=== PATIENT | male | born 1985 | race Caucasian/White ===

== ENCOUNTER 2017-12-09 18:00 | Emergency (ER) | payer BC ==
[2017-12-09 18:31] VITALS: BP 135/87; TEMP 98.5; BMI 30.1
--- NOTE | 2017-12-09 18:32 | PDOC ---
Rapid Medical Evaluation Chief Complaint: Chest Pain Time Seen by Provider: 12/09/17 18:29 Medical Evaluation: Allergies Allergy/AdvReac Type Severity Reaction Status Date / Time prednisone Allergy Hives Verified 12/09/17 18:28 12/09/17 18:29 Pt states he had chest pain starting this afternoon starting around 1pm. Pt has pmh of asthma. Pt also admits to a headache. States his chest feels tight Exam: RRR, lungs CTAB Orders: Labs ,Iv, EKG, CXR Pt to proceed to the ED for further evaluation Discharge Disposition - Diagnosis Chest pain - Referrals - Patient Instructions - Post Discharge Activity
--- NOTE | 2017-12-09 19:11 | PDOC ---
History of Present Illness - General Chief Complaint: Chest Pain Stated Complaint: CHEST PAIN Time Seen by Provider: 12/09/17 18:29 - History of Present Illness Initial Comments: 12/09/17 19:11 Mr. Engel is a 32 yo male w/ pmh of asthma and anxiety who presents for evaluation of midline chest pain since 1pm tonight. Patient reports he was walking around at work without strenuous activity when his pain started. He took some motrin as well for a headache that developed following this and reports the headache has mostly resolved. Patient denies pain being sharp or constant but describes it as a "funny feeling." The patient denies shortness of breath, and dizziness. Denies fever, chills, nausea, vomit, diarrhea and constipation. Denies dysuria, frequency, urgency and hematuria. Past History - Past Medical History Allergies/Adverse Reactions: Allergies Allergy/AdvReac Type Severity Reaction Status Date / Time prednisone Allergy Hives Verified 12/09/17 18:28 Home Medications: Ambulatory Orders Albuterol 2.5/Ipratropium 0.5 [Duoneb -] 1 neb NEB Q4H #20 vial 11/09/16 Fluticasone Prop 0.05% Nasal [Flonase -] 1 - 2 spray NS DAILY #1 spray.pump Prednisone [Deltasone] 20 mg PO BID #10 tablet 11/09/16 clonazePAM [KlonoPIN] 0.5 mg PO ASDIR PRN 11/09/16 Albuterol Sulfate Inhaler - [Ventolin HFA Inhaler -] 1 - 2 inh PO Q4H PRN #1 inhaler 12/09/17 Asthma: Yes Kidney Stones: Yes (DEC 2010) Seizures: (ANXIETY) - Surgical History Appendectomy: Yes - Immunization History Immunization Up to Date: Yes - Suicide/Smoking/Psychosocial Hx Smoking Status: No Smoking History: Never smoked Have you smoked in the past 12 months: No Number of Cigarettes Smoked Daily: 0 Hx Alcohol Use: No Drug/Substance Use Hx: No Substance Use Type: None Review of Systems - Review of Systems Comments:: 12/09/17 19:25 GENERAL/CONSTITUTIONAL: No fever or chills. No weakness. HEAD, EYES, EARS, NOSE AND THROAT: No change in vision. No ear pain or discharge. No sore throat. CARDIOVASCULAR: +Chest pain as described. No shortness of breath RESPIRATORY: No cough, wheezing, or hemoptysis. GASTROINTESTINAL: No nausea, vomiting, diarrhea or constipation. GENITOURINARY: No dysuria, frequency, or change in urination. MUSCULOSKELETAL: No joint or muscle swelling or pain. No neck or back pain. SKIN: No rash NEUROLOGIC: +Headache as described, no vertigo, loss of consciousness, or change in strength/sensation. ENDOCRINE: No increased thirst. No abnormal weight change HEMATOLOGIC/LYMPHATIC: No anemia, easy bleeding, or history of blood clots. ALLERGIC/IMMUNOLOGIC: No hives or skin allergy. *Physical Exam - Vital Signs Last Vital Signs Temp Pulse Resp BP Pulse Ox 98.5 F 102 H 18 135/87 96 12/09/17 18:28 12/09/17 18:28 12/09/17 18:28 12/09/17 18:28 12/09/17 18:28 - Physical Exam Comments: 12/09/17 19:25 GENERAL: Awake, alert, and fully oriented, in no acute distress HEAD: No signs of trauma, normocephalic, atraumatic EYES: PERRLA, EOMI, sclera anicteric, conjunctiva clear ENT: Auricles normal inspection, hearing grossly normal, nares patent, oropharynx clear without exudates. Moist mucosa NECK: Normal ROM, supple, no lymphadenopathy, JVD, or masses LUNGS: +Diffuse wheezes appreciated throughout lung reed. No distress, speaks full sentences, clear to auscultation bilaterally HEART: +Some chest wall TTP. Regular rate and rhythm, normal S1 and S2, no murmurs, rubs or gallops, peripheral pulses normal and equal bilaterally. ABDOMEN: Soft, nontender, normoactive bowel sounds. No guarding, no rebound. No masses EXTREMITIES: Normal inspection, Normal range of motion, no edema. No clubbing or cyanosis. NEUROLOGICAL: Cranial nerves II through XII grossly intact. Normal speech, normal gait, no focal sensorimotor deficits SKIN: Warm, Dry, normal turgor, no rashes or lesions noted. ED Treatment Course - LABORATORY CBC & Chemistry Diagram: 12/09/17 18:54 12/09/17 18:54 Medical Decision Making - Medical Decision Making 12/09/17 20:25 Mr. Engel is a 32 yo male w/ pmh as described who presents for evaluation of chest pain c/w asthma exacerbation. Patient given duonebs and Mg w/ reduction in chest pain symptoms and repeat exam vastly improved. Labs as below grossly unconcerning. EKG negative. Patient midway through duonebs at this time. 12/09/17 21:24 Patient improved after duoneb treatment. CXR also negative. Discharging for further outpatient follow-up as needed. Laboratory Results - last 24 hr 12/09/17 12/09/17 12/09/17 18:54 18:54 18:54 WBC 9.7 RBC 5.24 Hgb 16.3 Hct 48.7 MCV 93.0 MCH 31.1 MCHC 33.5 RDW 12.9 Plt Count 179 MPV 9.9 Absolute Neuts (auto) 6.7 Neutrophils % 69.4 Lymphocytes % 20.6 Monocytes % 8.2 Eosinophils % 1.0 Basophils % 0.8 Nucleated RBC % 0 PT with INR 11.60 INR 0.98 Sodium 141 Potassium 4.4 Chloride 107 Carbon Dioxide 26 Anion Gap 8 BUN 15 Creatinine 1.1 Creat Clearance w eGFR > 60 Random Glucose 91 Calcium 8.8 Total Bilirubin 0.4 AST 27 ALT 64 H Alkaline Phosphatase 67 Creatine Kinase Troponin I Total Protein 7.2 Albumin 4.2 12/09/17 18:54 WBC RBC Hgb Hct MCV MCH MCHC RDW Plt Count MPV Absolute Neuts (auto) Neutrophils % Lymphocytes % Monocytes % Eosinophils % Basophils % Nucleated RBC % PT with INR INR Sodium Potassium Chloride Carbon Dioxide Anion Gap BUN Creatinine Creat Clearance w eGFR Random Glucose Calcium Total Bilirubin AST ALT Alkaline Phosphatase Creatine Kinase 128 Troponin I < 0.02 Total Protein Albumin *DC/Admit/Observation/Transfer Diagnosis at time of Disposition: Chest pain Qualifiers: Chest pain type: unspecified Qualified Code(s): R07.9 - Chest pain, unspecified Asthma Qualifiers: Asthma severity: unspecified severity Asthma persistence: unspecified Asthma complication type: unspecified Qualified Code(s): J45.909 - Unspecified asthma, uncomplicated - Discharge Dispostion Disposition: HOME Condition at time of disposition: Improved - Prescriptions Prescriptions: Albuterol Sulfate Inhaler - [Ventolin HFA Inhaler -] 1 - 2 inh PO Q4H PRN #1 inhaler PRN Reason: Short Of Breath/Wheezing - Referrals Referrals: Donavon Cunningham [Primary Care Provider] - - Patient Instructions Printed Discharge Instructions: DI for Asthma -- Adult, DI for Atypical Chest Pain, DI for Anxiety -- Adult Additional Instructions: You were evaluated today in the ER for your chest pain. No concerning findings were found on EKG or labs, and your symptoms improved after breathing treatments. We do not believe anything emergent is going on at this time. Please follow-up with primary care provider later this week for further evaluation. Return to ER if any return of chest pain, fever, chills, or other concerning symptoms. Please follow with her primary doctor for your symptoms, he may need titration of your anxiety medications as you have been undergoing some recent stress. May take your albuterol inhaler 1-2 puffs every 4-6 hours as needed for chest discomfort, shortness breath or wheezing. Minimize potential triggers including the environment and infections. Your enzymes here are negative and her EKG was unchanged and normal so this was not a heart attack. - Post Discharge Activity
[2017-12-09 19:15] LABS: BASO % 0.8 % (0-2.0); HEMATOCRIT 48.7 % (35.4-49); HEMOGLOBIN 16.3 GM/dL (11.7-16.9); LYMPH % 20.6 % (8-40); MCH 31.1 pg (25.7-33.7); MCHC 33.5 g/dl (32.0-35.9); MEAN PLT VOLUME 9.9 fl (7.5-11.1); MONO % 8.2 % (3.8-10.2); NEUT % 69.4 % (42.8-82.8); PLATELET COUNT 179 K/MM3 (134-434); RBC 5.24 M/mm3 (4.00-5.60); RDW 12.9 % (11.9-15.9); WHITE BLOOD COUNT 9.7 K/mm3 (4.0-10.0)
[2017-12-09] MEDS ORDERED: MAGNESIUM SULF 50% (8.12 MEQ/2 ML-1 GM VIAL) IVPB ONE (19:17)
[2017-12-09] MEDS ORDERED: ALBUTEROL SO4 2.5/IPRATROPIUM 0.5 INH SOL 3 ML VIAL.NEB. NEB ONE (19:19)
[2017-12-09] MEDS: ALBUTEROL SO4 2.5/IPRATROPIUM 0.5 INH SOL 3 ML VIAL.NEB. NEB SCH ×3 (19:27→20:14)
[2017-12-09 19:29] LABS: INR 0.98 (0.83-1.09); PROTHROMBIN TIME (PATIENT) 11.6 SEC (9.7-13.0)
[2017-12-09 19:31] VITALS: PULSE 82
[2017-12-09] MEDS ORDERED: MAGNESIUM 1GM/D5W - 2 GM/200 ML IVPB IVPB ONE (19:45)
[2017-12-09 19:50] LABS: ALBUMIN 4.2 g/dl (3.4-5.0); ALK PHOS 67 U/L (45-117); ANION GAP 8 MMOL/L (8-16); BILIRUBIN,TOTAL 0.4 mg/dL (0.2-1); BLOOD UREA NITROGEN 15 mg/dL (7-18); CALCIUM 8.8 mg/dL (8.5-10.1); CHLORIDE 107 mmol/L (98-107); CO2 26 mmol/L (21-32); CREATININE 1.1 mg/dL (0.55-1.3); GLUCOSE,RANDOM 91 mg/dL (74-106); POTASSIUM 4.4 mmol/L (3.5-5.1); SGOT/AST 27 U/L (15-37); SGPT/ALT 64 U/L (13-61); SODIUM 141 mmol/L (136-145); TOT PROT 7.2 g/dl (6.4-8.2)
--- NOTE | 2017-12-09 21:17 | PDOC ---
Attending Attestation - Resident Resident Name: Rafa Davis - ED Attending Attestation I have performed the following: I have examined & evaluated the patient, The case was reviewed & discussed with the resident, I agree w/resident's findings & plan - HPI HPI: 12/09/17 21:14 The patient is a 32 year old male with a significant past medical history of asthma and anxiety who presents for evaluation of midline chest pain since 1pm today. He states he was walking leisurely at work when he developed the nonradiating midline chest pain which he describes as a funny feeling. admits to recent stressors, going through divorce. no tobacco or etoh use. denies precipitants or allergens or sick contacts The patient denies shortness of breath, headache and dizziness. The patient denies fever, chills, nausea, vomit, diarrhea and constipation. The patient denies dysuria, frequency, urgency and hematuria. Allergies: NKDA - Physicial Exam PE: 12/09/17 21:17 NAD, well appearing, eomi, perrl, MMM, nl conjunctiva, anicteric; neck supple. lungs clear, no respiratory distress. RRR, abdomen soft nontender. MOODY x4, no focal neuro deficits. No peripheral edema. normal color for ethnicity, WWP. no calf tenderess 12/09/17 21:17 - Medical Decision Making 12/09/17 21:17 32-year-old male with history of anxiety and asthma presenting with chest pain today, since resolved. +stressors. no infection prodrome or sick contacts or allergens. Diff diagnosis includes asthma exacerbation, viral syndrome, bronchitis, pneumonia, anxiety reaction, costochondritis, clinically consider but doubt ACS or cardiovascular etiology, PE or dissection. Vital signs reviewed, initial tachy, otherwise wnl. Prior notes reviewed, including admissions, discharges and consultations. laboratory results and imaging reviewed, basic labs and lytes wnl CXR_neg for pna or edema/infiltrate, clear no acute pathology Cardiac panel_negative, so doubt ACS. EKG normal sinus rhythm, no interval abnormalities, narrow QRS, ST and T wave segments and morphology normal. Nonspecific T wave abnormalities similar to prior. ED course: no acute events, remained stable and well appearing. Clinically improved after interventions, including duonebs and Mg, steroid allergy so will not give chest pain free, no respiratory distress. VS improved, tachy down. normal sats and respiratory status, no fevers, nontoxic Dispo: Pt to be discharged in stable condition. Patient made aware of impression and plan, return precautions discussed (including but not limited to worsening pain or symptoms), fevers, or signs of infection, chest pain, respiratory distress, inability to tolerate oral intake, dehydration, syncope, or neurologic changes). Follow up with PMD and/or specialist as recommended, follow up information provided, take medications as instructed for duration of time. continue with supportive care, avoid triggers and precipitants. stress reduction as well due to recent stressors, f/u pcp for change and adjustments with anxiolytic meds. All questions answered to patient's satisfaction and expressed understanding and comfort with this. 12/09/17 21:22 12/09/17 21:23 *DC/Admit/Observation/Transfer Diagnosis at time of Disposition: Asthma Chest pain Qualifiers: Chest pain type: unspecified Qualified Code(s): R07.9 - Chest pain, unspecified - Discharge Dispostion Disposition: HOME Condition at time of disposition: Improved Decision to Admit order: No - Prescriptions Prescriptions: Albuterol Sulfate Inhaler - [Ventolin HFA Inhaler -] 1 - 2 inh PO Q4H PRN #1 inhaler PRN Reason: Short Of Breath/Wheezing - Referrals Referrals: Donavon Cunningham [Primary Care Provider] - - Patient Instructions Printed Discharge Instructions: DI for Asthma -- Adult, DI for Atypical Chest Pain, DI for Anxiety -- Adult Additional Instructions: You were evaluated today in the ER for your chest pain. No concerning findings were found on EKG or labs, and your symptoms improved after breathing treatments. We do not believe anything emergent is going on at this time. Please follow-up with primary care provider later this week for further evaluation. Return to ER if any return of chest pain, fever, chills, or other concerning symptoms. Please follow with her primary doctor for your symptoms, he may need titration of your anxiety medications as you have been undergoing some recent stress. May take your albuterol inhaler 1-2 puffs every 4-6 hours as needed for chest discomfort, shortness breath or wheezing. Minimize potential triggers including the environment and infections. Your enzymes here are negative and her EKG was unchanged and normal so this was not a heart attack. - Post Discharge Activity
--- NOTE | 2017-12-11 15:08 | EKG ---
Test Reason : Blood Pressure : / mmHG Vent. Rate : 094 BPM Atrial Rate : 094 BPM P-R Int : 148 ms QRS Dur : 090 ms QT Int : 352 ms P-R-T Axes : 068 054 051 degrees QTc Int : 440 ms NORMAL SINUS RHYTHM NONSPECIFIC T WAVE ABNORMALITY ABNORMAL ECG WHEN COMPARED WITH ECG OF 25-SEP-2011 02:45, NONSPECIFIC T WAVE ABNORMALITY NOW EVIDENT IN LATERAL LEADS Confirmed by ROB DIMAS, PRESLEY ([id number]) on 12/11/2017 3:08:29 PM Referred By: Confirmed By:PRESLEY RIVAS MD
== END 2017-12-09 21:27 | disposition home or self-care (01) ==
LOC: JER 18:00
PROC: 3E033GC Introduction of Other Therapeutic Substance into Peripheral Vein, Percutaneous Approach (ICD-10-PCS; principal; 2017-12-09)
PROC: 3E0F7GC Introduction of Other Therapeutic Substance into Respiratory Tract, Via Natural or Artificial Opening (ICD-10-PCS; 2017-12-09)
DX: J45.909 Unspecified asthma, uncomplicated (principal); F41.9 Anxiety disorder, unspecified
CPT/HCPCS: 36415; 71046-TC-FY; 80053; 82550; 84484; 85025; 85610; 93005; 93010; 99283-25

== ENCOUNTER 2018-10-31 10:04 | Emergency (ER) | payer BC ==
[2018-10-31 10:09] VITALS: BP 135/84; PULSE 99; TEMP 98.3; BMI 29.5
[2018-10-31] MEDS ORDERED: IBUPROFEN 400 MG TABLET (FP) PO ONE ×2 (10:51→10:53)
--- NOTE | 2018-10-31 10:51 | PDOC ---
History of Present Illness - General Chief Complaint: Injury Stated Complaint: LACERATION Time Seen by Provider: 10/31/18 10:27 History Source: Patient Exam Limitations: No Limitations Past History - Travel Traveled outside of the country in the last 30 days: No Close contact w/someone who was outside of country & ill: No - Past Medical History Allergies/Adverse Reactions: Allergies Allergy/AdvReac Type Severity Reaction Status Date / Time prednisone Allergy Hives Verified 10/31/18 10:10 Home Medications: Ambulatory Orders Albuterol 2.5/Ipratropium 0.5 [Duoneb -] 1 neb NEB Q4H #20 vial 11/09/16 Fluticasone Prop 0.05% Nasal [Flonase -] 1 - 2 spray NS DAILY #1 spray.pump Prednisone [Deltasone] 20 mg PO BID #10 tablet 11/09/16 clonazePAM [KlonoPIN] 0.5 mg PO ASDIR PRN 11/09/16 Albuterol Sulfate Inhaler - [Ventolin HFA Inhaler -] 1 - 2 inh PO Q4H PRN #1 inhaler 12/09/17 Amoxicillin/Potassium Clav [Augmentin 875-125 Tablet] 1 each PO BID #13 tablet 10/31/18 Ibuprofen 600 mg PO Q6H #30 tablet 10/31/18 Asthma: Yes COPD: No Kidney Stones: Yes (DEC 2010) Seizures: (ANXIETY) - Surgical History Appendectomy: Yes - Immunization History Immunization Up to Date: Yes - Suicide/Smoking/Psychosocial Hx Smoking Status: No Smoking History: Never smoked Have you smoked in the past 12 months: No Number of Cigarettes Smoked Daily: 0 Hx Alcohol Use: Yes Drug/Substance Use Hx: No Substance Use Type: None Review of Systems - Review of Systems Able to Perform ROS?: Yes Comments:: 10/31/18 10:42 CONSTITUTIONAL: Absent: fever, chills, diaphoresis, generalized weakness, malaise, loss of appetite HEENT: Absent: rhinorrhea, nasal congestion, throat pain, throat swelling, difficulty swallowing, mouth swelling, ear pain, eye pain, visual Changes SKIN: Present: laceration Absent: rash, itching, pallor NEUROLOGIC: Absent: headache, focal weakness or paresthesias, dizziness, unsteady gait, seizure, mental status changes, bladder or bowel incontinence PSYCHIATRIC: Absent: anxiety, depression, suicidal or homicidal ideation, hallucinations. Is the patient limited Thai proficient: No *Physical Exam - Vital Signs Last Vital Signs Temp Pulse Resp BP Pulse Ox 98.3 F 99 H 16 135/84 97 10/31/18 10:07 10/31/18 10:07 10/31/18 10:07 10/31/18 10:07 10/31/18 10:07 - Physical Exam Comments: 10/31/18 10:43 GENERAL: The patient is awake, alert, and fully oriented, in no acute distress. HEAD: Normal with no signs of trauma. EYES: Pupils equal, round and reactive to light, extraocular movements intact, sclera anicteric, conjunctiva clear. MOUTH: Teeth intact, no dental damage EXTREMITIES: Normal range of motion, no edema. NEUROLOGICAL: Normal speech, normal gait. PSYCH: Normal mood, normal affect. SKIN: 1 cm deep laceration to the R upper lip, through and through. Warm, Dry, normal turgor, no rashes or lesions noted Procedures - Laceration/Wound Repair Right Upper Lip Wound Length: to 2.5 cm Wound Explored: clean, no foreign body present Wound's Depth, Shape: into muscle, linear Irrigated w/ Saline: Yes Betadine Prep: Yes Anesthesia: 1% Lidocaine Amount of Anesthetic (ccs): 3 Wound Repaired With: Sutures Suture Size/Type: 6:0 (nylon) Number of Sutures: 3 (simple interrupted) Layer Closure: Yes Deep Layer Suture Size/Type: 5:0 (gut) Number of Deep Layer Sutures: 1 Medical Decision Making - Medical Decision Making 10/31/18 11:54 The patient is a 33 y/o M with PMH of anxiety presents to the ER with a laceration to his R upper lip. He states he was playing softball in left field when he got hit in the face with a ball that took a bad hop approximately one hour ago. His friends told him the wound was deep so he came to the ER to have the wound sutured. Denies headache, LOC, dental damage. A/P: lip laceration On exam 1cm deep laceration to the R upper lip No vermilion boarder involvement Wound cleaned under high pressure normal saline Wound closed; see procedure note Tetanus updated Given deep wound to lip; placed pt on Augmentin. First dose given in ED Pt to return in two days for a wound check DC home I discussed the physical exam findings, ancillary test results and final diagnoses with the patient. I answered all of the patient's questions. The patient was satisfied with the care received and felt comfortable with the discharge plan and treatment plan. The Patient agrees to follow up with the primary care physician/specialist within 24-72 hours. Return precautions were given. *DC/Admit/Observation/Transfer Diagnosis at time of Disposition: Laceration - Discharge Dispostion Disposition: HOME Condition at time of disposition: Stable Decision to Admit order: No - Prescriptions Prescriptions: Amoxicillin/Potassium Clav [Augmentin 875-125 Tablet] 1 each PO BID #13 tablet Ibuprofen 600 mg PO Q6H #30 tablet - Referrals Referrals: Adiel Guardado MD [Staff Physician] - - Patient Instructions Printed Discharge Instructions: DI for Laceration Repair -- Complex Suture Additional Instructions: You had your cut fixed today with stitches. Please return in 2 days to have your stitches checked Your tetanus shot was updated today. Avoid soaking the lip. Keep it dry when showering. Please keep the area clean and pat dry. You may use bacitracin once a day. You may take Motrin as needed for pain. Follow the dosing instructions on the bottle Return to the emergency department sooner if you have area of redness around the site, purulent drainage, fevers, or have any changes in your symptoms. - Post Discharge Activity
[2018-10-31] MEDS ORDERED: AMOX TR/POT CLAV 875MG/125MG TABLETS (FP) PO ONE (11:33)
[2018-10-31] MEDS ORDERED: DIPHTH,PERTUSS(ACELL),TET 0.5 ML DISP.SYRIN IM ONE ×2 (11:35→11:37)
[2018-10-31] MEDS ORDERED: AMOX TR/POT CLAV 875MG/125MG TABLETS (FP) ONE (11:37)
== END 2018-10-31 11:43 | disposition home or self-care (01) ==
LOC: JERFT 10:04
PROC: 0CQ03ZZ Repair Upper Lip, Percutaneous Approach (ICD-10-PCS; principal; 2018-10-31)
PROC: 3E0234Z Introduction of Serum, Toxoid and Vaccine into Muscle, Percutaneous Approach (ICD-10-PCS; 2018-10-31)
DX: S01.511A Laceration without foreign body of lip, initial encounter (principal); W21.07XA Struck by softball, initial encounter; Y93.64 Activity, baseball; Y92.320 Baseball field as the place of occurrence of the external cause; Y99.8 Other external cause status
CPT/HCPCS: 90715; 99281-25

== ENCOUNTER 2018-11-03 21:39 | Emergency (ER) | payer BC ==
[2018-11-03 21:50] VITALS: BP 151/98; PULSE 82; TEMP 98; BMI 31.0
--- NOTE | 2018-11-03 21:50 | PDOC ---
History of Present Illness - General Stated Complaint: SUTURE REMOVEL Time Seen by Provider: 11/03/18 21:45 - History of Present Illness Initial Comments: 11/03/18 21:46 Sutures placed R upper lip 4 days ago pt here for wound check so feeling better Past History - Past Medical History Allergies/Adverse Reactions: Allergies Allergy/AdvReac Type Severity Reaction Status Date / Time prednisone Allergy Hives Verified 10/31/18 10:10 Home Medications: Ambulatory Orders Albuterol 2.5/Ipratropium 0.5 [Duoneb -] 1 neb NEB Q4H #20 vial 11/09/16 Fluticasone Prop 0.05% Nasal [Flonase -] 1 - 2 spray NS DAILY #1 spray.pump Prednisone [Deltasone] 20 mg PO BID #10 tablet 11/09/16 clonazePAM [KlonoPIN] 0.5 mg PO ASDIR PRN 11/09/16 Albuterol Sulfate Inhaler - [Ventolin HFA Inhaler -] 1 - 2 inh PO Q4H PRN #1 inhaler 12/09/17 Amoxicillin/Potassium Clav [Augmentin 875-125 Tablet] 1 each PO BID #13 tablet 10/31/18 Ibuprofen 600 mg PO Q6H #30 tablet 10/31/18 Asthma: Yes COPD: No Kidney Stones: Yes (DEC 2010) Seizures: (ANXIETY) - Surgical History Appendectomy: Yes - Immunization History Immunization Up to Date: Yes - Suicide/Smoking/Psychosocial Hx Smoking Status: No Smoking History: Never smoked Have you smoked in the past 12 months: No Number of Cigarettes Smoked Daily: 0 Hx Alcohol Use: Yes Drug/Substance Use Hx: No Substance Use Type: None Review of Systems - Review of Systems Constitutional: No: Chills, Fever, Night Sweats *Physical Exam - Physical Exam General Appearance: Yes: Appropriately Dressed. No: Apparent Distress HEENT: positive: Normal ENT Inspection, Normal Voice, Symmetrical Neck: positive: Trachea midline, Supple Respiratory/Chest: negative: Respiratory Distress Integumentary: positive: Other (wound R upper lip c/d/i normal skin color and temperature ) Medical Decision Making - Medical Decision Making 11/03/18 21:47 Wound is healing nicely return in 6 days for suture removal *DC/Admit/Observation/Transfer Diagnosis at time of Disposition: Visit for wound check - Discharge Dispostion Disposition: HOME Condition at time of disposition: Stable Decision to Admit order: No - Referrals - Patient Instructions Additional Instructions: Return to the emergency room in 6 days for suture removal. Keep area clean and dry. You may wash with soap and water and leave the area open to air. Return to the emergency room should problems develop. Do not apply any ointments or creams. - Post Discharge Activity
== END 2018-11-03 21:55 | disposition home or self-care (01) ==
LOC: JER 21:39 → JERFT 21:39
DX: Z48.01 Encounter for change or removal of surgical wound dressing (principal); Z88.8 Allergy status to other drugs, medicaments and biological substances; F41.9 Anxiety disorder, unspecified; J45.909 Unspecified asthma, uncomplicated
CPT/HCPCS: 99281-25

== ENCOUNTER 2020-01-22 14:33 | Emergency (ER) | payer BC ==
[2020-01-22 14:38] VITALS: BP 130/80; PULSE 83; TEMP 97.9; BMI 29.5
[2020-01-22] MEDS ORDERED: DIPHTH,PERTUSS(ACELL),TET 0.5 ML DISP.SYRIN IM ONE ×2 (14:47→14:58)
== END 2020-01-22 15:12 | disposition home or self-care (01) ==
LOC: JERFT 14:33
PROC: 0HQGXZZ Repair Left Hand Skin, External Approach (ICD-10-PCS; principal; 2020-01-22)
PROC: 3E0234Z Introduction of Serum, Toxoid and Vaccine into Muscle, Percutaneous Approach (ICD-10-PCS; 2020-01-22)
DX: S61.412A Laceration without foreign body of left hand, initial encounter (principal)
CPT/HCPCS: 90715; 99284-25

== ENCOUNTER 2021-01-25 23:30 | Emergency (ER) | payer BC ==
[2021-01-25 23:35] VITALS: BP 137/83; PULSE 96; TEMP 98.2; BMI 29.9
[2021-01-26] MEDS ORDERED: KETOROLAC TROMETHAMINE 30 MG/1 ML VIAL IM ONE (00:10)
[2021-01-26] MEDS ORDERED: KETOROLAC TROMETHAMINE 30 MG/1 ML VIAL ONE (00:24)
== END 2021-01-26 01:06 | disposition home or self-care (01) ==
LOC: JER 23:30
PROC: 3E023GC Introduction of Other Therapeutic Substance into Muscle, Percutaneous Approach (ICD-10-PCS; principal; 2021-01-25)
DX: M25.571 Pain in right ankle and joints of right foot (principal)
CPT/HCPCS: 73610-TC-RT-FY; 73630-TC-RT-FY; 99284-25

== ENCOUNTER 2021-12-21 08:16 | Emergency (ER) | payer BC ==
[2021-12-21 08:34] VITALS: BP 132/80; PULSE 77; RESP 16; TEMP 77; BMI 29.2
== END 2021-12-21 09:49 | disposition home or self-care (01) ==
LOC: JER 08:16
DX: F41.0 Panic disorder [episodic paroxysmal anxiety] (principal)
CPT/HCPCS: 93005; 93010; 99283-25

== ENCOUNTER 2024-07-08 20:20 | Emergency (ER) | payer BC ==
[2024-07-08 20:25] VITALS: BMI 29.5
[2024-07-08] MEDS ORDERED: ACETAMINOPHEN 500 MG TABLET (FP) ONE (21:06)
[2024-07-08] MEDS: ACETAMINOPHEN 500 MG TABLET (FP) PO ONE (21:08)
[2024-07-08] MEDS: AMOX TR/POT CLAV 875MG/125MG TABLETS (FP) PO ONE (23:24)
[2024-07-09 00:05] VITALS: BP 141/70; PULSE 84; RESP 18; TEMP 98.2
== END 2024-07-09 00:05 | disposition short-term general hospital (02) ==
LOC: JER 20:20 → JERFT 20:20 → JER 07-09 00:05
DX: S02.2XXA Fracture of nasal bones, initial encounter for closed fracture (principal); S02.401A Maxillary fracture, unspecified side, initial encounter for closed fracture; W21.07XA Struck by softball, initial encounter; Y93.64 Activity, baseball
CPT/HCPCS: 70450-TC; 70486-TC; 99285-25